=== PATIENT | male | born 1985 | race African-American/Black ===

== ENCOUNTER 2019-03-24 16:21 | Emergency (ER) | payer OTHER ==
[2019-03-24] MEDS ORDERED: ONDANSETRON 4 MG TAB.RAPDIS PO ONE (17:42)
--- NOTE | 2019-03-24 17:44 | ER Document Report ---
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 Patient was given 700 cc of fluid by EMS. Patient states that he is feeling a little bit better, but does continue to have weakness. Patient states that he did have an episode of arm cramping which is since resolved. Denies drug allergies. Denies any IV drug abuse or alcohol involvement. Denies VITAL, fever, neck pain, URI, CP, SOB, Abd pain, dysuria, back pain, or rash. I have treated and performed a rapid initial assessment of this patient. A comprehensive ED assessment and evaluation of the patient, analysis of test results and completion of medical decision making process will be conducted by additional ED providers. PHYSICAL EXAMINATION: GENERAL: Well-appearing, well-nourished and in no acute distress. A&Ox4. Answers questions appropriately. LUNGS: Breath sounds clear to auscultation bilaterally and equal. No wheezes rales or rhonchi. HEART: Regular rate and rhythm without murmurs, rubs, gallops. ABDOMEN: Soft, nondistended abdomen. No guarding, no rebound. Normal bowel sounds present. No CVA tenderness bilaterally. Grossly nontender (cannot elicit thorough abd exam w/o bed, however). Extremities: No cyanosis, clubbing, or edema b/l. NEUROLOGICAL: Normal speech, normal gait. Cranial nerves grossly intact PSYCH: Normal mood, normal affect. - Related Data Allergies/Adverse Reactions: No Known Allergies Allergy (Unverified 03/24/19 16:23) Physical Exam - Vital signs Vitals: Temp Pulse Resp BP Pulse Ox 97.9 F 73 20 112/82 100 03/24/19 16:30 03/24/19 16:30 03/24/19 16:30 03/24/19 16:30 03/24/19 16:30 Course - Vital Signs Vital signs: Temp Pulse Resp BP Pulse Ox 97.9 F 73 20 112/82 100 03/24/19 16:30 03/24/19 16:30 03/24/19 16:30 03/24/19 16:30 03/24/19 16:30
[2019-03-24] MEDS: NORMAL SALINE 1000 ML 1,000 ML IV PRN ×2 (18:03→18:44)
[2019-03-24 18:18] LABS: ABSOLUTE BASOPHILS # (AUTO) 0.1 10^3/uL (0.0-0.2); ABSOLUTE EOSINOPHILS # (AUTO) 0.3 10^3/uL (0.0-0.6); ABSOLUTE LYMPHOCYTES (AUTO) 2.4 10^3/uL (0.5-4.7); ABSOLUTE MONOCYTES (AUTO) 0.3 10^3/uL (0.1-1.4); ABSOLUTE NEUT (AUTO) 2.7 10^3/uL (1.7-8.2); BASOPHILS % (AUTO) 0.9 % (0-2); HEMATOCRIT 42.9 % (37.9-51.0); HEMOGLOBIN 14.3 g/dL (13.5-17.0); LYMPHOCYTES % (AUTO) 41.5 % (13-45); MEAN CORPUSCULAR HEMOGLOBIN 29.8 pg (27.0-33.4); MEAN CORPUSCULAR HGB CONC 33.3 g/dL (32.0-36.0); MEAN CORPUSCULAR VOLUME 89 fl (80-97); MONOCYTES % (AUTO) 5.7 % (3-13); PLATELET COUNT 294 10^3/uL (150-450); RED CELL DISTRIBUTION WIDTH 13.3 % (11.5-14.0); SEGMENTED NEUTROPHILS % (AUTO) 45.9 % (42-78); TOTAL CELLS COUNTED % (AUTO) 100 %; WHITE BLOOD COUNT 5.8 10^3/uL (4.0-10.5)
[2019-03-24 18:19] LABS: APPEARANCE,URINE CLEAR; BILIRUBIN,URINE NEGATIVE (NEGATIVE); COLOR,URINE YELLOW; GLUCOSE, URINE NEGATIVE (NEGATIVE); KETONES,URINE NEGATIVE (NEGATIVE); LEUKOCYTE ESTERASE,URINE NEGATIVE (NEGATIVE); NITRITE,URINE NEGATIVE (NEGATIVE); PROTEIN,URINE NEGATIVE (NEGATIVE); URINE SPECIFIC GRAVITY 1.017; UROBILINOGEN,URINE NEGATIVE mg/dL (<2.0)
[2019-03-24 23:40] LABS: ALANINE AMINOTRANSFERASE 21 U/L (21-72); ALBUMIN 4.1 g/dL (3.5-5.0); ALKALINE PHOSPHATASE 84 U/L (38-126); ANION GAP 8 (5-19); ASPARTATE AMINO TRANSFERASE 29 U/L (17-59); BILIRUBIN,DIRECT 0.2 mg/dL (0.0-0.4); BILIRUBIN,TOTAL 0.8 mg/dL (0.2-1.3); BLOOD UREA NITROGEN 13 mg/dL (7-20); CALCIUM 9.2 mg/dL (8.4-10.2); CARBON DIOXIDE 24 mmol/L (22-30); CHLORIDE 109 mmol/L (98-107); CREATINE KINASE 339 U/L (55-170); GLUCOSE 87 mg/dL (75-110); POTASSIUM 4.1 mmol/L (3.6-5.0); SODIUM 141.4 mmol/L (137-145); TOTAL PROTEIN 7.1 g/dL (6.3-8.2)
--- NOTE | 2019-03-25 00:25 | ER Document Report ---
ED General - General Chief Complaint: Heat Exposure Stated Complaint: WEAKNESS Time Seen by Provider: 03/24/19 17:40 Notes: Patient is a pleasant 34-year-old male who presents with complaint of exhaustion. 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 He did vomit once today after being on the heat. He says he has not been drinking as much water as he should. He denies any muscle cramps. No syncope. He denies any chronic medical problems and does not typically take medications. He has no other complaints at this time. TRAVEL OUTSIDE OF THE [place] IN LAST 30 DAYS: No - Related Data Allergies/Adverse Reactions: No Known Allergies Allergy (Unverified 03/24/19 16:23) Past Medical History - Social History Smoking Status: Current Every Day Smoker Frequency of alcohol use: None Drug Abuse: None Family History: Reviewed & Not Pertinent Patient has suicidal ideation: No Patient has homicidal ideation: No Renal/ Medical History: Denies: Hx Peritoneal Dialysis Review of Systems - Review of Systems Notes: My Normal Review Basic REVIEW OF SYSTEMS: CONSTITUTIONAL : Denies fever, chills, or sweats. Denies recent illness. EENT: Denies eye, ear, throat, or mouth pain or symptoms. Denies nasal or sinus congestion. CARDIOVASCULAR: Denies chest pain. RESPIRATORY: Denies cough, cold, or chest congestion. Denies shortness of breath, difficulty breathing, or wheezing. GASTROINTESTINAL: Denies abdominal pain. Vomiting x1 GENITOURINARY: Denies difficulty urinating, painful urination, burning, frequency, or blood in urine. MUSCULOSKELETAL: Denies neck or back pain or joint pain or swelling. SKIN: Denies rash or skin lesions. NEUROLOGICAL: Denies altered mental status or loss of consciousness. Denies headache. Denies weakness or paralysis or loss of use of either side. Denies problems with gait or speech. Denies sensory or motor loss. ALL OTHER SYSTEMS REVIEWED AND NEGATIVE. Physical Exam - Vital signs Vitals: Temp Pulse Resp BP Pulse Ox 97.9 F 73 20 112/82 100 03/24/19 16:30 03/24/19 16:30 03/24/19 16:30 03/24/19 16:30 03/24/19 16:30 - Notes Notes: General Appearance: Well nourished, alert, cooperative, no acute distress, no obvious discomfort. Well-appearing. Vitals: reviewed, See vital signs table. Head: no swelling or tenderness to the head Eyes: PERRL, EOMI, Conjuctiva clear Mouth: No decreasd moisture Lungs: No wheezing, No rales, No rhonci, No accessory muscle use, good air exchange bilaterally. Heart: Normal rate, Regular rythm, No murmur, no rub Abdomen: Normal BS, soft, No rigidity, No abdominal tenderness, No guarding, no rebound, no abdominal masses, no organomegaly Extremities:good pulses in all extremities, no swelling or tenderness in the extremities, no edema. Skin: warm, dry, appropriate color, no rash Neuro: speech clear, oriented x 3, normal affect, responds appropriately to questions. Course - Re-evaluation Re-evalutation: 03/25/19 00:24 Since receiving IV fluids patient says he feels much better. He is not nauseous. He feels well. Is not having muscle cramps. His laboratory evaluation is unremarkable except for some mildly elevated CPK. Renal function is normal. This time I feel the patient states be discharged home. I will write him a work note for tomorrow. He says he still may go to work tomorrow. I informed him if he goes to work he must drink water frequently. I informed him that he can drink Pedialyte or Gatorade for every 2 bottles of water that he drinks. I encouraged him of low threshold to return to ER if he has decreased urination, muscle cramps, vomiting, or feels unwell. Patient agrees with plan will be discharged home. Dictation of this chart was performed using voice recognition software; therefore, there may be some unintended grammatical errors. - Vital Signs Vital signs: Temp Pulse Resp BP Pulse Ox 97.7 F 72 20 111/76 100 03/25/19 00:53 03/25/19 00:53 03/24/19 16:30 03/25/19 00:53 03/25/19 00:53 - Laboratory Result Diagrams: 03/24/19 17:57 03/24/19 23:13 Laboratory results interpreted by me: 03/24/19 03/24/19 17:57 23:13 Chloride 109 H Creatine Kinase 339 H Urine Ascorbic Acid 40 H Discharge - Discharge Clinical Impression: Dehydration Condition: Good Disposition: HOME, SELF-CARE Additional Instructions: Please make sure you drink lots of water when you are not working. For every 2 bottles of water you can drink a bottle of Gatorade or diluted Pedialyte. Please get out the heat immediately if you start having muscle cramping, vomiting, or feel that your mouth is dry. Please return to the ER immediately if you have recurrent vomiting, muscle cramps, or are having decrease in urination. Forms: Return to Work
[2019-03-25 01:00] VITALS: BP 111/76
== END 2019-03-25 01:00 | disposition home or self-care (01) ==
LOC: ER 16:21
DX: E86.0 Dehydration (principal); R53.1 Weakness; F17.200 Nicotine dependence, unspecified, uncomplicated
CPT/HCPCS: 99284; 96360; 96361; 36415; 82550; 85025; 80053; 81001; S0119; J7030